=== PATIENT | male | born 1955 | race Hispanic/Latino ===

== ENCOUNTER 2016-11-02 12:13 | Emergency (ER) | payer MEDICARE ==
[2016-11-02 17:05] LABS: Bilirubin,Urine NEG (Negative); Blood,Urine MOD (Negative); Ketones,Urine TR mg/dL (Negative); Leukocyte Esterase,Urine LG (Negative); Mucus,Urine FEW /HPF; Nitrite,Urine POS (Negative)
[2016-11-02 17:06] LABS: Protein,Urine >500 mg/dL (Negative); WBC,Urine > 182.0 /HPF (0.0-6.0)
--- NOTE | 2016-11-02 21:01 | Emergency Department Report ---
Chief Complaint: Urogenital-Male Stated Complaint: BLOOD IN URINE Time Seen by Provider: 11/02/16 20:55 - HPI History of Present Illness: PT now c/o bloody stool as well as blood in his urine. - ROS Review of Systems: + bleeding + hematuria - Exam Vital Signs: Vital Signs 11/02/16 13:13 Temperature 98.8 F Pulse Rate 101 H Respiratory 16 Rate Blood Pressure 114/82 O2 Sat by Pulse 98 Oximetry Physical Exam: chronically ill man, non toxic ambulatory gcs 15 MSE screening note: Focused history and physical exam performed. Due to findings the following was ordered: labs ED Disposition for MSE Condition: Stable Referrals: CONSTANTINE ACOSTA MD [Primary Care Provider] - 3-5 Days
[2016-11-02 21:37] LABS: Basophils % (Auto) 0.5 % (0.0-1.8); Eosinophils % (Auto) 0.1 % (0.0-4.3); Hematocrit 37.1 % (35.5-45.6); Hemoglobin 12.6 gm/dl (11.8-15.2); Mean Corpuscular HGB Conc 34 % (32-34); Mean Corpuscular Hemoglobin 29 pg (28-32); Mean Corpuscular Volume 86 fl (84-94); Platelet Count 316 K/mm3 (140-440); Red Cell Distribution Width 13.3 % (13.2-15.2); White Blood Count 16.7 K/mm3 (4.5-11.0)
[2016-11-02 21:45] LABS: Alanine Aminotransferase 14 units/L (7-56); Albumin 3.8 g/dL (3.9-5); Albumin/Globulin Ratio 1.2 %; Alkaline Phosphatase 91 units/L (35-129); Anion Gap 22 mmol/L; Bilirubin,Total 0.5 mg/dL (0.1-1.2); Blood Urea Nitrogen 17 mg/dL (9-20); Calcium 8.5 mg/dL (8.4-10.2); Carbon Dioxide 22 mmol/L (22-30); Chloride 92.6 mmol/L (98-107); Glucose 235 mg/dL (75-100); Potassium 4.3 mmol/L (3.6-5.0); Sodium 132 mmol/L (137-145); Total Protein 6.9 g/dL (6.3-8.2)
[2016-11-02 21:47] LABS: INR 1.02 (0.87-1.13)
[2016-11-02 21:48] LABS: Partial Thromboplastin Time 29.9 Sec. (24.2-36.6)
[2016-11-02 22:51] VITALS: BP 139/75
--- NOTE | 2016-11-02 22:53 | Emergency Department Report ---
HPI - General Chief Complaint: Urogenital-Male Time Seen by Provider: 11/02/16 20:55 - HPI HPI: Room 26 The patient is a 60-year-old male presenting with a chief complaint of hematuria. The patient states 2 months ago he developed bilateral back pain. Patient states 4 days ago he had difficulty urinating but then noticed hematuria. Patient states today he developed left back pain in addition to his right back pain. Patient admits to dysuria and nausea but denies vomiting. She denies any history of fever. When asked how is feeling currently the patient replies "tired and wore out." Location: [see above] Duration: [see above] Quality: Discomfort Severity: Moderate Modifying factors: [see above] Context: [see above] Mode of transportation: Unknown ED Past Medical Hx - Past Medical History Hx Hypertension: Yes Hx Diabetes: Yes Hx Deep Vein Thrombosis: Yes Hx Renal Disease: Yes Hx Arthritis: Yes Hx Seizures: Yes Hx Kidney Stones: Yes Additional medical history: Thyroid disease, parathyroid disease - Surgical History Hx Cholecystectomy: Yes Hx Appendectomy: Yes Additional Surgical History: Cervical surgery, 1/2 stomach removed, veins in R arm removed - Family History Family history: no significant - Social History Smoking Status: Current Every Day Smoker Substance Use Type: None - Medications Home Medications: Home Medications Medication Instructions Recorded Confirmed Last Taken Type Ascorbic Acid [Vitamin C] 500 mg PO 11/02/16 11/02/16 History Captopril [Capoten] 25 mg PO Q8HR 11/02/16 11/02/16 11/02/16 History Cimetidine 300 mg PO 11/02/16 11/02/16 History Insulin Glargine [Lantus] 10 unit SUB-Q QHS 11/02/16 11/02/16 11/02/16 History Levothyroxine [Synthroid] 125 mcg PO QAM 11/02/16 11/02/16 11/02/16 History Pregabalin [Lyrica] 200 mg PO 11/02/16 11/02/16 History Vitamin B Complex [B Complex] 1 each PO DAILY 11/02/16 11/02/16 11/02/16 History Zinc 50 mg PO 11/02/16 11/02/16 11/02/16 History traMADol [Ultram] 50 mg PO Q4HR PRN 11/02/16 11/02/16 11/02/16 History HYDROcodone/APAP 5-325 [[place] 1 - 2 each PO Q6HR PRN #14 tablet 11/03/16 Unknown Rx 5/325] Ibuprofen [Motrin 800 MG tab] 800 mg PO Q8HR PRN #14 tablet 11/03/16 Unknown Rx Levofloxacin [Levaquin] 750 mg PO QDAY #10 tablet 11/03/16 Unknown Rx ED Review of Systems ROS: Stated complaint: BLOOD IN URINE Other details as noted in HPI Comment: All other systems reviewed and negative Constitutional: denies: chills, fever Eyes: denies: eye pain, eye discharge, vision change ENT: denies: ear pain, throat pain Respiratory: denies: cough, shortness of breath, wheezing Cardiovascular: denies: chest pain, palpitations Endocrine: no symptoms reported Gastrointestinal: nausea. denies: abdominal pain, vomiting, diarrhea Genitourinary: dysuria, hematuria Musculoskeletal: back pain Skin: denies: rash, lesions Neurological: denies: headache, weakness, paresthesias Psychiatric: denies: anxiety, depression Hematological/Lymphatic: denies: easy bleeding, easy bruising Physical Exam - Physical Exam Vital Signs: Vital Signs 11/02/16 13:13 Temperature 98.8 F Pulse Rate 101 H Respiratory 16 Rate Blood Pressure 114/82 O2 Sat by Pulse 98 Oximetry Physical Exam: GENERAL: The patient is well-developed well-nourished male lying on stretcher with sunglasses in place not appearing to be in acute distress. [] HEENT: Normocephalic. Atraumatic. Patient has moist mucous membranes. NECK: Supple. Trachea midline CHEST/LUNGS: Clear to auscultation. There is no respiratory distress noted. HEART/CARDIOVASCULAR: Regular. There is no tachycardia. There is no gallop rub or murmur. ABDOMEN: Abdomen is soft, nontender. Patient has normal bowel sounds. There is no abdominal distention. SKIN: There is no rash. There is no edema. There is no diaphoresis. NEURO: The patient is awake, alert, and oriented. The patient is cooperative. The patient has normal speech MUSCULOSKELETAL: There is no evidence of acute injury. ED Course Vital Signs 11/02/16 13:13 Temperature 98.8 F Pulse Rate 101 H Respiratory 16 Rate Blood Pressure 114/82 O2 Sat by Pulse 98 Oximetry ED Medical Decision Making - Lab Data Result diagrams: 11/02/16 21:17 11/02/16 21:17 Laboratory Tests 11/02/16 11/02/16 11/02/16 16:32 21:17 21:17 WBC 16.7 H RBC 4.30 Hgb 12.6 Hct 37.1 MCV 86 MCH 29 MCHC 34 RDW 13.3 Plt Count 316 Lymph % (Auto) 22.7 [place] % (Auto) 11.1 H Eos % (Auto) 0.1 Baso % (Auto) 0.5 Lymph # 3.8 [place] # 1.8 H Eos # 0.0 Baso # 0.1 Seg Neutrophils % 65.6 Seg Neutrophils # 11.0 H PT 13.3 INR 1.02 APTT 29.9 Sodium Potassium Chloride Carbon Dioxide Anion Gap BUN Creatinine Estimated GFR BUN/Creatinine Ratio Glucose Calcium Total Bilirubin AST ALT Alkaline Phosphatase Total Protein Albumin Albumin/Globulin Ratio Urine Color [place] Urine Turbidity Cloudy Urine pH 5.0 Ur Specific [place] 1.019 Urine Protein >500 Urine Glucose (UA) 150 Urine Ketones Tr Urine Blood Mod Urine Nitrite Pos Urine Bilirubin Neg Urine Urobilinogen 2.0 Ur Leukocyte Esterase Lg Urine WBC (Auto) > 182.0 H Urine RBC (Auto) 45.0 U Epithel Cells (Auto) < 1.0 Urine Mucus Few 11/02/16 21:17 WBC RBC Hgb Hct MCV MCH MCHC RDW Plt Count Lymph % (Auto) [place] % (Auto) Eos % (Auto) Baso % (Auto) Lymph # [place] # Eos # Baso # Seg Neutrophils % Seg Neutrophils # PT INR APTT Sodium 132 L Potassium 4.3 Chloride 92.6 L Carbon Dioxide 22 Anion Gap 22 BUN 17 Creatinine 1.0 Estimated GFR > 60 BUN/Creatinine Ratio 17.00 Glucose 235 H Calcium 8.5 Total Bilirubin 0.5 AST 12 ALT 14 Alkaline Phosphatase 91 Total Protein 6.9 Albumin 3.8 L Albumin/Globulin Ratio 1.2 Urine Color Urine Turbidity Urine pH Ur Specific [place] Urine Protein Urine Glucose (UA) Urine Ketones Urine Blood Urine Nitrite Urine Bilirubin Urine Urobilinogen Ur Leukocyte Esterase Urine WBC (Auto) Urine RBC (Auto) U Epithel Cells (Auto) Urine Mucus - Radiology Data Radiology results: report reviewed (CT abdomen and pelvis), image reviewed (CT abdomen pelvis) CT abdomen and pelvis (read by radiologist)-several tiny punctate nonobstructing renal calculi. No hydronephrosis bilaterally. Minimal bilateral perinephric stranding which may relate to sequela of prior inflammation. - Differential Diagnosis pyelonephritis, renal colic Critical care attestation.: If time is entered above; I have spent that time in minutes in the direct care of this critically ill patient, excluding procedure time. ED Disposition Clinical Impression: Acute pyelonephritis, Bilateral flank pain, Hematuria Disposition: DISCHARGED TO HOME OR SELFCARE Is pt being admited?: No Does the pt Need Aspirin: No Condition: Stable Instructions: Acute Pyelonephritis (ED), Flank Pain (ED) Additional Instructions: Return to the emergency department immediately should you develop worsening symptoms, fever, inability to tolerate food or liquid or any other concerns. Prescriptions: HYDROcodone/APAP 5-325 [[place] 5/325] 1 - 2 each PO Q6HR PRN #14 tablet PRN Reason: Pain Ibuprofen [Motrin 800 MG tab] 800 mg PO Q8HR PRN #14 tablet PRN Reason: Pain Levofloxacin [Levaquin] 750 mg PO QDAY #10 tablet Referrals: CONSTANTINE ACOSTA MD [Primary Care Provider] - 3-5 Days Time of Disposition: 00:45
[2016-11-02] MEDS ORDERED: ROCEPHIN IM ONE (22:59)
[2016-11-02] MEDS ORDERED: XYLOCAINE 1% MPF 5 mL INFILTRATI ONE (22:59)
--- NOTE | 2016-11-03 00:26 | Cat Scan Report ---
FINAL REPORT EXAM: CT ABDOMEN PELVIS WO CON HISTORY: hematuria abdominal dysuria and bilateral flank pa COMPARISON: CT abdomen pelvis June 10, 2016. TECHNIQUE: Contiguous axial images were obtained. Additional sagittal and coronal reformatted images were obtained. FINDINGS: Lung bases are clear. Gallbladder surgically absent. Liver, spleen, pancreas are grossly unremarkable. Mild nodular thickening of adrenal glands. Tiny benign calcification left adrenal gland. A few tiny punctate nonobstructive renal calculi ranging in size between 1 and 3 millimeters. No hydronephrosis. Minimal bilateral perinephric stranding which may relate to sequelae of prior inflammation. Aorta and IVC normal in caliber. Severe calcified plaque along the aorta. No distal ureteral urinary bladder calculi. Mild enlargement of prostate gland which projects minimally into the base the bladder measuring 3.5 x 4.8 centimeters in axial dimension. No free fluid or lymphadenopathy in the pelvic cavity. There are few pelvic phleboliths. Mild wall thickening of the distal rectosigmoid colon concerning for mild segmental colitis versus wall thickening related to is partially decompressed state.. Moderate large amount of stool throughout the colon. Remaining bowel loops normal in caliber. Mild degenerative changes of lumbar spine. Bony pelvis is grossly intact. IMPRESSION: Several tiny punctate nonobstructive renal calculi. No hydronephrosis bilaterally. Minimal bilateral perinephric stranding which may relate to sequelae of prior inflammation. Correlation with urinalysis suggested. No ureteral or urinary bladder calculi. Mild enlargement of prostate gland projecting minimally into the base the bladder. Correlation with PSA suggested. Mild wall thickening the distal rectosigmoid colon which may relate to its decompressed state. Mild segmental colitis could have a similar appearance.
== END 2016-11-03 01:16 | disposition home or self-care (01) ==
LOC: ED 12:13
DX: N10 Acute pyelonephritis (principal); R31.9 Hematuria, unspecified; R10.9 Unspecified abdominal pain; E11.9 Type 2 diabetes mellitus without complications; I82.409 Acute embolism and thrombosis of unspecified deep veins of unspecified lower extremity; M19.90 Unspecified osteoarthritis, unspecified site; E07.89 Other specified disorders of thyroid; F17.200 Nicotine dependence, unspecified, uncomplicated; Z90.49 Acquired absence of other specified parts of digestive tract; Z79.4 Long term (current) use of insulin
CPT/HCPCS: 36415; 74176; 80053; 81001; 85025; 85610; 85730; 87076; 87086; 87186; 96372; 99284; J0696

== ENCOUNTER 2017-09-21 07:50 | Outpatient (CLI) | payer MEDICARE ==
[2017-09-21 08:37] LABS: Blood Urea Nitrogen 15 mg/dL (9-20)
[2017-09-21] MEDS ORDERED: NACL ONE (08:49)
--- NOTE | 2017-09-26 08:03 | Cat Scan Report ---
CT ANGIO ABD/FEMORAL ABD AORTA: HISTORY: Peripheral vascular disease. TECHNIQUE: Helical CT imaging with 1.25mm reconstructions following IV contrast. Sagittal and Coronal 2D reformatted images. 3 dimensional volume rendering technique. Stenosis was measured using NASCET criteria. COMPARISON: none. FINDINGS: ABDOMINAL AORTA: There are moderate to severe calcified plaque throughout the mid to distal abdominal aorta. No evidence for aneurysm or dissection. Large calcific plaques in the distal aorta result in at least 50% stenosis of the distal aorta. COMMON ILIAC ARTERIES: The right common iliac artery is occluded. There are moderate to severe calcific plaques in the left common iliac artery with stenosis measuring 50%. EXTERNAL ILIAC ARTERIES: Mild to moderate partially calcified plaques are identified bilaterally with stenosis measuring up to 50%. INTERNAL ILIAC ARTERIES: Mild to moderate partially calcified plaques are identified bilaterally with stenosis measuring up to 50%. RIGHT LOWER EXTREMITY: There are moderate partially calcified plaques in the right superficial femoral artery with stenosis measuring up to 50%. There is a focal area of high-grade narrowing in the right popliteal artery with stenosis measuring 70%. The arterial structures distal to the right knee are patent to the ankle with no significant stenosis. LEFT LOWER EXTREMITY: There are moderate partial calcified plaques in the left superficial femoral artery with stenosis measuring up to 50% in its midportion. A focal dense calcification in the left popliteal artery results in a 50% stenosis. The arterial structures distal to the left knee are patent to the ankle with no significant stenosis. IMPRESSION: Moderate to severe atherosclerotic disease identified in the distal aorta and common iliac arteries as outlined above. Narrowing of the distal aorta measures up to 50%. 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 50% stenosis in the left common iliac artery. Moderate atherosclerotic disease in the bilateral superficial femoral arteries and popliteal arteries as described.
== END 2017-09-21 07:51 | disposition home or self-care (01) ==
LOC: CT 07:50
PROVIDERS: ATTEND Surgery Vascular Surgery
DX: I70.213 Atherosclerosis of native arteries of extremities with intermittent claudication, bilateral legs (principal); I70.8 Atherosclerosis of other arteries
CPT/HCPCS: 36415; 75635; 82565; 84520; Q9967